=== PATIENT | male | born 1990 | race Asian ===

== ENCOUNTER 2020-02-16 14:32 | Emergency (ER) | payer OTHER ==
[~2020-02-16] VITALS: Ht 180.3 cm; Wt 83.9 kg
[2020-02-16 15:02] VITALS: BP 136/81
--- NOTE | 2020-02-16 15:14 | Emergency Room Report ---
History of Present Illness General Chief Complaint: Skin Rash/Abscess Source: Patient Present Illness HPI 29-year-old male presents to the emergency department complaining of erythema, swelling, warmth and 3 out of 10 severity tenderness to soft tissue in the right axilla progressive x3 days. Patient reports that last night it popped and began draining purulent discharge on its own. Patient reports a history of similar episode in the same axilla several years ago. Patient denies fevers or chills. He denies history of immune compromise. He denies trauma. He states he is up-to-date with tetanus vaccination. Patient states he has been taking Advil which provides some minimal relief. No other aggravating or relieving factors at this time. Allergies: Coded Allergies: No Known Allergies (Unverified , 02/16/20) COVID-19 Screening Contact w/high risk pt: No Recent Travel to affected area: No Experienced COVID-19 symptoms?: No COVID-19 Testing performed RANGE MANAGEMENT SPECIALIST: No Patient History Past Medical History: see triage record Past Surgical History: none Pertinent Family History: none Immunizations: UTD Reviewed Nursing Documentation: PMH: Agreed; PSxH: Agreed Nursing Documentation-PMH Past Medical History: No Stated History Review of Systems All Other Systems: negative except mentioned in HPI Physical Exam Vital Signs Date Time Temp Pulse Resp B/P (MAP) Pulse Ox O2 Delivery O2 Flow Rate FiO2 02/16/20 14:38 98.1 74 18 136/81 (99) 96 Room Air Sp02 EP Interpretation: reviewed, normal General Appearance: no apparent distress, alert, GCS 15, non-toxic Head: normocephalic, atraumatic Eyes: bilateral eye normal inspection, bilateral eye PERRL ENT: hearing grossly normal, normal voice Neck: full range of motion Respiratory: lungs clear, normal breath sounds, speaking full sentences Cardiovascular #1: regular rate, rhythm Musculoskeletal: normal range of motion, gait/station normal, non-tender Neurologic: alert, motor strength/tone normal, oriented x3, sensory intact, responsive, speech normal Psychiatric: judgement/insight normal Skin: other - Right axilla - Erythema, fluctuance, warmth and swelling- Draining freely on its own, approx 2cm in size. Lymphatic: no adenopathy Medical Decision Making PA Attestation Dr. Lewis is my supervising Physician whom patient management has been discussed with. Diagnostic Impression: Primary Impression: Axillary hidradenitis suppurativa ER Course 29-year-old male presents to the emergency department complaining of erythema, swelling, warmth and 3 out of 10 severity tenderness to soft tissue in the right axilla progressive x3 days. Patient reports that last night it popped and began draining purulent discharge on its own. Patient reports a history of similar episode in the same axilla several years ago. Patient denies fevers or chills. He denies history of immune compromise. He denies trauma. He states he is up-to-date with tetanus vaccination. Patient states he has been taking Advil which provides some minimal relief. No other aggravating or relieving factors at this time. Ddx considered but are not limited to cellulitis, hydradenitis Suppurativa, fracture, d/L, gout, abscess Vital signs: are WNL, pt. is afebrile H&PE are most consistent with Hydradenitis Suppurativa of the right axilla - Erythema, fluctuance, warmth and swelling- Draining freely on its own, approx 2cm in size. ORDERS: -None required at this time. ED INTERVENTIONS: -Wound dressing applied. - Pt. given wound care supplies for at home. d/w pt. wound care and will be given rx for abx. D/w pt. outpatient follow up with PCP. Pt. given ED return precautions for worsening or new symptoms. DISCHARGE: At this time pt. is stable for d/c to home. Will provide printed patient care instructions, and any necessary prescriptions. Care plan and follow up instructions have been discussed with the patient prior to discharge. Last Vital Signs Date Time Temp Pulse Resp B/P (MAP) Pulse Ox O2 Delivery O2 Flow Rate FiO2 02/16/20 14:38 98.1 74 18 136/81 (99) 96 Room Air Disposition: HOME, SELF-CARE Condition: Stable Scripts Mupirocin* (MUPIROCIN*) 22 Gm Oint...g. 1 APPLIC TOPIC THREE TIMES A DAY, #22 GM Prov: Ranjana Brewer 02/16/20 Acetaminophen With Codeine (T#3) (TYLENOL #3 TAB*) Y Tab 1 TAB ORAL Q6H PRN for For Pain, #12 TAB Prov: Ranjana Brewer 02/16/20 Clindamycin Hcl (CLINDAMYCIN HCL) 300 Mg Capsule 300 MG ORAL FOUR TIMES A DAY for 7 Days, #28 CAP Prov: Ranjana Brewer 02/16/20 Patient Instructions: Abscess, Hidradenitis Suppurativa Additional Instructions: Take medications as directed. Do not drink alcohol, drive, or operate heavy machinery while taking Tylenol # 3 as this may cause drowsiness. Follow up with a Primary Care Provider in 3-5 days, even if your symptoms have resolved. --Please review list of primary care clinics, if you do not already have a primary care provider Return sooner to ED if new symptoms occur, or current symptoms become worse. - Please note that this Emergency Department Report was dictated using [employer] inspector technology software, occasionally this can lead to erroneous entry secondary to interpretation by the dictation equipment. Ranjana Brewer Feb 16, 2020 15:14
[2020-02-16] MEDS ORDERED: MUPIROCIN22 GM TOPIC (15:15)
[2020-02-16] MEDS ORDERED: CLINDAMYCIN HC300 MG ORAL (15:15)
[2020-02-16] MEDS ORDERED: ACETAMINOPHEN-1 EAC1 ORAL (15:15)
[2020-02-16 15:25] VITALS: BP 136/81
== END 2020-02-16 15:35 | disposition home or self-care (01) ==
LOC: EMR 14:50
DX: L73.2 Hidradenitis suppurativa (principal)
CPT/HCPCS: 99282